=== PATIENT | female | born 1990 | race Caucasian/White ===

== ENCOUNTER 2021-07-27 21:10 | Emergency (ER) | payer OTHER ==
[2021-07-27] MEDS ORDERED: ZOFRAN ODT 4 MG4 MG PO (23:12)
[2021-07-27] MEDS ORDERED: PROVENTIL HFA6.7 GM INH (23:12)
[2021-07-27] MEDS ORDERED: LODINE CAP 300300 MG PO (23:12)
== END 2021-07-27 23:55 | disposition home or self-care (01) ==
LOC: ER1 21:10
DX: J06.9 Acute upper respiratory infection, unspecified (principal); Z88.5 Allergy status to narcotic agent; F17.210 Nicotine dependence, cigarettes, uncomplicated; Z20.822 Contact with and (suspected) exposure to COVID-19
CPT/HCPCS: 0240U; 71045; 81001; 84703; 87081; 87086; 87880; 99283